=== PATIENT | female | born 1960 | race Caucasian/White ===

== ENCOUNTER 2019-08-01 18:33 | Emergency (ER) | payer OTHER, SELFPAY | END 2019-08-01 18:54 | disposition left against medical advice (07) | PROVIDERS: Emergency Provider Nurse Practitioner Family; PCP Family Medicine | DX: Z53.21 Procedure and treatment not carried out due to patient leaving prior to being seen by health care provider (principal) | CPT/HCPCS: 99199 ==

== ENCOUNTER 2019-08-01 19:05 | Emergency (ER) | payer OTHER, SELFPAY ==
[2019-08-01] VITALS (7 sets, daily range): BP systolic 138–163; BP diastolic 68–88; PULSE 70–90; RESP 14–20; TEMP 36.4–36.8; O2SAT 94–98
--- NOTE | ~2019-08-01 | XR_ITS ---
XR shoulder RT min 2V 08/01/2019 21:26 Indication: Postreduction right shoulder. Shoulder pain. Procedure: 2 views right shoulder Comparison: 08/01/2019 Findings: Normal anatomic alignment of the right glenohumeral joint post reduction. No fracture or tr aumatic malalignment. Visualized lung parenchyma unremarkable. Impression: 1: Normal anatomic alignment of the right shoulder post reduction. Reviewed, dictated and finalized at location A. Impression: 1: Normal anatomic alignment of the right shoulder post reduction.
--- NOTE | ~2019-08-01 | XR_ITS ---
XR shoulder RT min 2V 08/01/2019 20:29 Indication: Right shoulder pain after fall Procedure: 2 views right shoulder Comparison: No prior studies for comparison. Findings: There is a right anterior shoulder dislocation. No acute fracture. Mild degenerative change s of the acromioclavicular joint. Visualized lung parenchyma is unremarkable. Impression: 1: Right anterior shoulder dislocation. Reviewed, dictated and finalized at location A. Impression: 1: Right anterior shoulder dislocation.
--- NOTE | 2019-08-01 19:47 | PC.NURSE ---
patient requesting pain medication prior to x-ray. dr godinez aware. no new orders
--- NOTE | 2019-08-01 19:49 | PC.NURSE ---
Pt's standing at door asking RN for medication. Informed we cannot give her medication until the physician prescribes it. EDP notified pt is requesting medication again. No further orders.
[2019-08-01] MEDS: LACTATED RINGERS 1,000 ML 150 ML IV CONT (20:01)
--- NOTE | 2019-08-01 20:14 | ED.UPPEXIN ---
HPI - Extremity Injury (Upper) General Chief Complaint: Extremity Injury, Upper Stated Complaint: R SHOULDER INJURY Time Seen by Provider: 08/01/19 19:26 Source: patient and family Mode of arrival: ambulatory Limitations: no limitations History of Present Illness HPI narrative: 58 f h/o dm, htn tripped and fell in the kitchen while carrying a laptop and wrenched her r shoulder no other injury, no loc, no antecedent sx MD complaint: injury to: right and shoulder Related Data Home Medications Medication Instructions Recorded Confirmed indomethacin mg PO 08/01/19 Allergies Allergy/AdvReac Type Severity Reaction Status Date / Time No Known Allergies Allergy Unverified 08/01/19 19:20 Review of Systems Cardiovascular: Cardiovascular: Denies chest pain Respiratory: Respiratory: Reports no additional respiratory complaints Musculoskeletal: Musculoskeletal: Denies back pain, Reports arthralgias and Reports joint swelling Neurologic: Denies vertigo, Denies syncope, Denies numbness and Denies weakness PMFSH Family History Family History Father Depression Hypertension Family history of chronic obstructive pulmonary disease Acute myocardial infarction Mother Depression Family history of diabetes mellitus in first degree relative Patient's mother is in good health Other Diabetes mellitus Family history of cardiovascular disease Family history of emphysema Family history of seizure disorder Social History Social History Smoking status: Never smoker Alcohol intake: never Gender identity (if verbalized by the patient): Female Exam Const: General: alert Orientation/consciousness: patient oriented x3 HENMT: Head: normal to inspection, no contusions and no hematomas Eyes: Conjunctivae: conjunctivae normal EOM: EOMs intact bilaterally Resp: Effort & Inspection: normal respiratory effort Skin: General skin exam: normal color Rashes: no rashes Neuro: General: patient oriented x3 and no focal motor deficits Extrem: Other: r shoulder deformity c/w anterior dislocation intact sens, pulses, cap refill distally Course Course Emergency Course: dr modi will f/u Vital Signs Vital signs: Vital Signs Temperature 36.4 C 08/01/19 19:07 Pulse Rate 70 08/01/19 19:07 Respiratory Rate 20 08/01/19 19:07 Blood Pressure 163/88 H 08/01/19 19:07 Pulse Oximetry 98 08/01/19 19:07 Temperature 36.8 C 08/01/19 21:11 Pulse Rate 75 08/01/19 21:28 Respiratory Rate 17 08/01/19 21:28 Blood Pressure 138/68 08/01/19 21:28 Pulse Oximetry 94 08/01/19 21:28 Procedures Orthopedic Joint Reduction Joint #1: Orthopedic Joint Reduction Date: 08/01/19 Orthopedic Joint Reduction Time: 21:05 Time Out Performed: Yes Side: right Joint Reduction Location: shoulder Analgesia: procedural sedation (monitored, o2 on, 100 mcg fentanyl + 50mg propofol, uneventful recovery, well tolerated, no complication) Pre-Procedure Neuro Vascular Exam: normal Shoulder Technique Used (if applicable): other (downward traction w/ 45 deg ext rotation) Post-reduction neuro exam: intact Post-reduction vascular: intact Post Reduction X-Ray Obtained: Yes Post Reduction X-Ray Results: reduced Splint Applied: Yes (immobilizer) Patient Tolerated Procedure: well Discharge Plan Discharge Clinical Impression: Anterior dislocation of right shoulder Patient Disposition: Home, Self-Care Condition: Improved Instructions: Antibiotic Form, Shoulder Dislocation (ED), How to Use a Sling (ED) Prescriptions: New hydrocodone-acetaminophen [[place]] 5-325 mg tablet 1 tablet PO Q6H PRN (Reason: pain) Qty: 10 RF: 0 No Action indomethacin 75 mg capsule, extended release PO RF: 0 metformin 1,000 mg tablet 1,000 mg PO BID Qty: 180 RF: 1 Foll
--- NOTE | 2019-08-01 20:18 | PC.NURSE ---
2 calls made to xray to let them know patient is ready for xray
--- NOTE | 2019-08-01 20:30 | PC.NURSE ---
patient requesting more pain medication. dr godinez made aware no new orders
--- NOTE | 2019-08-01 21:38 | PC.NURSE ---
TIMEOUT PREFORMED BEFORE R SHOULDER REDUCTION. EDP TEO AND ROSALBA ANGELA AT BEDSIDE ALONG WITH SASHA, RN, MARIO, RN AND IGGY RN VORB EDP TEO 100 MCG FENTANYL ADMINISTERED AT 2110 IVP VORB EDP TEO 50 MG PROPOFOL ADMINISTERED AT 2112 IVP
[2019-08-01] MEDS: SODIUM CHLORIDE 0.9% IV 500 ML 999 ML (21:43)
== END 2019-08-01 22:07 | disposition home or self-care (01) ==
PROVIDERS: Emergency Provider Emergency Medicine; PCP Family Medicine
DX: S43.014A Anterior dislocation of right humerus, initial encounter (principal); E11.9 Type 2 diabetes mellitus without complications; I10 Essential (primary) hypertension; Z79.84 Long term (current) use of oral hypoglycemic drugs; W01.0XXA Fall on same level from slipping, tripping and stumbling without subsequent striking against object, initial encounter
CPT/HCPCS: 23650; 73030; 96374; 99285; J2704; J3010; J7040; J7120

== ENCOUNTER → 2020-06-19 10:33 | Outpatient (CLI) | payer OTHER, SELFPAY ==
[2020-06-19 22:51] LABS: SARS-CoV-2 RNA PCR Negative
== END ==
PROVIDERS: PCP Family Medicine; Visit Provider Family Medicine
DX: Z20.822 Contact with and (suspected) exposure to COVID-19 (principal); J06.9 Acute upper respiratory infection, unspecified
CPT/HCPCS: C9803; U0003; U0005

== ENCOUNTER 2020-08-19 08:14 | Emergency (ER) | payer OTHER, SELFPAY ==
--- NOTE | ~2020-08-19 | US_ITS ---
EXAMINATION:US venous doppler LE LT INDICATION:Left leg pain TECHNIQUE: Multiple grayscale, color flow and Doppler images of the left lower extremity deep venous systems were obtained and reviewed. COMPARISON:No prior studies for comparison. FINDINGS: The common femoral, superficial femoral and popliteal veins demonstrate normal respiratory variation, augmentation and compressibility. Color flow is also seen within the posterior tibial, pe roneal, greater saphenous and profunda veins. IMPRESSION: 1: No lower extremity deep venous thrombosis. Reviewed, dictated and finalized at location B.
--- NOTE | ~2020-08-19 | XR_ITS ---
EXAMINATION: XR knee LT min 4V EXAM DATE: 08/19/2020 09:11 INDICATION: Pain, left knee posterior pain, popping and swelling. TECHNIQUE: Left knee frontal, crosstable lateral, orthogonal oblique projections for interpretation. There is no prior study for comparison. FINDINGS: No evidence osteochondral defect or joint body in the left knee joint. There are no acute fractures or dislocations identified. There is no subcutaneous gas. There is small joint effusion. Some posterior soft tissue prominence, could be a sizable Bustos's cyst. There are no radiopaque fore ign bodies. IMPRESSION: 1. Small left knee joint effusion. 2. Suspicion of sizable Bustos's cyst. Reviewed, dictated and finalized at location A.
[2020-08-19 08:21] VITALS: BP 162/96; PULSE 93; RESP 18; TEMP 36.2; O2SAT 96
--- NOTE | 2020-08-19 08:50 | PC.NURSE ---
Pt to imaging at this time.
--- NOTE | 2020-08-19 08:50 | ED.EXTPRO ---
HPI - Extremity Problem General Chief complaint: Extremity Problem,Nontraumatic Stated complaint: pain behind lt knee Time Seen by Provider: 08/19/20 08:25 Source: patient, RN notes reviewed and old records reviewed Mode of arrival: ambulatory Limitations: no limitations History of Present Illness HPI Narrative: This is a 59 year old female who presents for evaluation of left lower extremity pain. She states she has been having intermittent posterior knee pain for over 1 year, and her orthopedic surgeon diagnosed her with osteoarthritis. She takes indomethacin intermittently for her pain. Over the past week she has had left calf pain and cramping. She takes an over the counter muscle cramping medication with tylenol and indomethacin. This morning she was unable to bear weight on her left leg due to severe pain. She took 75 mg indomethacin with 1300 mg tylenol prior to arrival. She has no pain currently at rest. She developed pain again when she tries to walk. She denies history of dVT or PE. She denies chest pain, sob or dizziness. Related Data Home Medications Medication Instructions Recorded Confirmed indomethacin mg PO 08/01/19 Allergies Allergy/AdvReac Type Severity Reaction Status Date / Time No Known Allergies Allergy Verified 08/19/20 08:25 Review of Systems Review of Systems: All systems reviewed & are unremarkable except as noted in HPI and below PMFSH Past Medical History Medical History Hypertension Surgical History Surgical History H/O knee surgery Family History Family History Father Depression Hypertension Family history of chronic obstructive pulmonary disease Acute myocardial infarction Mother Depression Family history of diabetes mellitus in first degree relative Patient's mother is in good health Other Diabetes mellitus Family history of cardiovascular disease Family history of emphysema Family history of seizure disorder Social History Social History Smoking status: Never smoker Alcohol intake: never Gender identity (if verbalized by the patient): Female Exam Const: General: no acute distress and alert Orientation/consciousness: patient oriented x3 Eyes: EOM: EOMs intact bilaterally Chest: Chest palpation & inspection: normal inspection of the chest Resp: Effort & Inspection: normal respiratory effort, not labored, no retractions and not tachypneic Neuro: General: patient oriented x3, moves all extremities and CN's II-XI intact bilaterally Extrem: General: no pedal edema Other: left calf tenderness, FROM Psych: Mental Status: mental status grossly normal Affect: normal affect Course Reevaluation(s) Reevaluation #1: Patient has been resting comfortably. I discussed labs showing elevated BS. She may be dehydrated and causing the cramps. She was given IVF and insulin. She has strong palpable pulses. no DVT. She will follow up with PCP and ortho Date: 08/19/20 Time: 11:01 Vital Signs Vital signs: Vital Signs Temperature 97.2 F L 08/19/20 08:21 Pulse Rate 93 08/19/20 08:21 Respiratory Rate 18 08/19/20 08:21 Blood Pressure 162/96 H 08/19/20 08:21 Pulse Oximetry 96 08/19/20 08:21 Temperature 97.2 F L 08/19/20 08:21 Pulse Rate 74 08/19/20 11:16 Respiratory Rate 14 08/19/20 11:16 Blood Pressure 151/91 H 08/19/20 11:16 Pulse Oximetry 98 08/19/20 11:16 MDM - Extremity (Nontraumatic) Lab Data Attestation: I reviewed the patient's lab results. Result diagrams: 08/19/20 09:22 08/19/20 09:22 Labs: Lab Results 08/19/20 08/19/20 08/19/20 Range/Units 09:22 09:22 09:22 WBC 7.0 (4.5-10.0) K/mm3 RBC 4.68 (4.2-5.4) M/mm3 Hgb 13.0 (12.0-15.0) g/dL Hct 40.7 (37.0-47.0) % MCV 87
[2020-08-19 09:35] LABS: Basophils Absolute Auto 0.1 K/mm3 (0.0-0.1); Basophils Percent Auto 0.9 % (0.2-1.2); Eosinophils Absolute Auto 0.1 K/mm3 (0-0.3); Eosinophils Percent Auto 1.8 % (0-4.4); Hematocrit 40.7 % (37.0-47.0); Immature Granulocyte Absolute 0.02 K/mm3 (0.00-0.031); Immature Granulocyte Percent A 0.3 % (0-0.5); Lymphocytes Absolute Auto 2.13 K/mm3 (0.9-3.2); Lymphocytes Percent Auto 30.3 % (18.3-44.2); Mean Corpuscular HGB Conc 31.9 g/dl (32-36); Mean Corpuscular Hemoglobin 27.8 pg (26-34); Mean Platelet Volume 10.9 fl (7.4-10.4); Monocytes Absolute Auto 0.5 K/mm3 (0.1-0.6); Monocytes Percent Auto 7.2 % (2.6-8.5); Neutrophils Absolute Auto 4.2 K/mm3 (1.3-6.7); Neutrophils Percent Auto 59.5 % (45.5-73.1); Platelet Count Result 216 k/mm3 (150-375); Red Blood Count 4.68 M/mm3 (4.2-5.4)
[2020-08-19 09:46] LABS: Alanine Aminotransferase 72 U/L (4-35); Albumin Level 4.3 g/dL (3.5-5.1); Alkaline Phosphatase 106 U/L (38-126); Anion Gap 7 mmol/L (8-16); Aspartate Amino Transferase 56 U/L (14-36); Bilirubin,Total 0.6 mg/dL (0.2-1.3); Blood Urea Nitrogen 18 mg/dL (7-17); Calcium 9.2 mg/dL (8.4-10.2); Carbon Dioxide 27 mmol/L (22-30); Chloride 105 mmol/L (98-107); Estimated CRCL calculation 91 ml/min; Estimated Glomerular Filt Rate > 60; Glucose 424 mg/dL (65-105); Magnesium 1.6 mg/dL (1.6-2.3); Potassium 4.9 mmol/L (3.4-5.0); Sodium 139 mmol/L (137-145)
[2020-08-19 09:47] LABS: Creatine Kinase 96 U/L (30-135)
[2020-08-19 09:50] VITALS: BP 143/90; O2SAT 98
[2020-08-19] MEDS: SODIUM CHLORIDE 0.9% IV 1,000 ML 999 ML IV CONT (09:51)
--- NOTE | 2020-08-19 09:57 | PC.NURSE ---
Request for accucheck by , reading [id number]
[2020-08-19 09:59] LABS: Glucose Point of Care 355 (65-105)
[2020-08-19] MEDS: INSULIN HUMAN REGULAR (*BKC) 100 UNITS/ML SUB-Q (10:17)
[2020-08-19 11:16] VITALS: BP 151/91; PULSE 74; RESP 14; O2SAT 98
== END 2020-08-19 11:17 | disposition home or self-care (01) ==
PROVIDERS: Emergency Provider General Practice; PCP Family Medicine
DX: R25.2 Cramp and spasm (principal); R73.9 Hyperglycemia, unspecified; E86.0 Dehydration; I10 Essential (primary) hypertension; Z79.84 Long term (current) use of oral hypoglycemic drugs
CPT/HCPCS: 36415; 73564; 80053; 82550; 82948; 83735; 85025; 93971; 96360; 99284; J1815; J7030

== ENCOUNTER → 2020-10-15 17:57 | Outpatient (CLI) | payer OTHER, SELFPAY ==
--- NOTE | ~2020-10-15 | XR_ITS ---
EXAMINATION: XR lumbar spine 2-3V DATE: 10/15/2020 18:38 INDICATION: Right-sided low back pain. Right-sided sciatica. TECHNIQUE: 3 views of lumbar spine were obtained. COMPARISON: None. FINDINGS: There is 3 degrees dextrocurvature of lumbar spine. There is 3 mm anterolisthesis of L4 on L5. Vertebral body heights are normal. There is mildly decreased disc height at L3-L4 and L4-L5. Ther e is severe facet joint osteoarthritis in lower lumbar spine. IMPRESSION: 1. Mild lumbar spondylosis. Reviewed, dictated and finalized at location A. IMPRESSION: 1. Mild lumbar spondylosis.
== END ==
PROVIDERS: PCP Family Medicine; Visit Provider Family Medicine
DX: M47.816 Spondylosis without myelopathy or radiculopathy, lumbar region (principal); M54.31 Sciatica, right side
CPT/HCPCS: 72100

== ENCOUNTER → 2020-11-28 00:36 | Outpatient (CLI) | payer BC, SELFPAY ==
[2020-11-28 21:59] LABS: SARS-CoV-2 RNA PCR Negative
== END ==
PROVIDERS: PCP Family Medicine; Visit Provider Family Medicine
DX: R09.81 Nasal congestion (principal); Z20.822 Contact with and (suspected) exposure to COVID-19
CPT/HCPCS: C9803; U0003; U0005

== ENCOUNTER → 2022-03-04 12:21 | Outpatient (CLI) | payer BC, SELFPAY ==
--- NOTE | ~2022-03-04 | XR_ITS ---
XR wrist LT min 3V DATE: 03/04/2022 12:55 INDICATION: Fall on 02/20/2022; left wrist injury, pain TECHNIQUE: 4 views COMPARISON: None FINDINGS: There is soft tissue swelling of the dorsum of the breasts. Triquetrum fracture with a dors ally displaced fracture fragment is noted. No other fracture or dislocation. No periosteal reaction or bone destruction. IMPRESSION: Triquetral fracture Reviewed, dictated and finalized at location A. ERENCE ORGANIZER IMPRESSION: Triquetral fracture
== END ==
PROVIDERS: PCP Physician Assistant; Visit Provider Physician Assistant
DX: S62.112A Displaced fracture of triquetrum [cuneiform] bone, left wrist, initial encounter for closed fracture (principal); X58.XXXA Exposure to other specified factors, initial encounter
CPT/HCPCS: 73110

== ENCOUNTER → 2023-05-10 11:29 | Outpatient (CLI) | payer BC, SELFPAY ==
--- NOTE | ~2023-05-10 | XR_ITS ---
Right Shoulder Technique: AP and axillary views were obtained. Clinical History: Pain Findings: No fracture or dislocation is seen. Osseous alignment is anatomic. The glenohumeral and acr omioclavicular joint spaces are preserved. Soft tissues are unremarkable. Impression: Unremarkable right shoulder radiographs. Reviewed, dictated and finalized at [facility]. OMER RETENTION REPRESENTATIVE Impression: Unremarkable right shoulder radiographs.
== END ==
PROVIDERS: PCP Physician Assistant; Visit Provider Physician Assistant
DX: M25.511 Pain in right shoulder (principal)
CPT/HCPCS: 73030